=== PATIENT | male | born 2000 | race Caucasian/White ===

== ENCOUNTER 2024-06-21 10:46 | Day surgery (SDC) | payer OTHER ==
[~2024-06-21] VITALS: Ht 177.8 cm; Wt 70.2 kg
[~2024-06-21 10:46] MED LIST: ALBU90OI INH; ALBU90OI6 INH; ALBUIS IH; AMOX50SU PO; AZIT100SU PO; AZIT200SU PO; Bupivacaine 0.5% HCl 5 MG/ML 30MLVIAL ONE; CLIN150 PO; DOXY100 PO; FentaNYL Citrate 50 MCG/ML 2 ML Injection ONE; IBUP100S; Lidocaine 1%-Epineph 1:100000 20 ML MDV ONE; RXANTBENOT AU; RXCODACESY PO; propofoL 20 ML IV ONE
[2024-06-21] MEDS ORDERED: Tranexamic Acid 100 ML IV ONE (10:53)
[2024-06-21] MEDS ORDERED: CeFAZolin Sodium 2,000 MG VIAL ONE (11:01)
[2024-06-21] MEDS ORDERED: NS 50 ML IV ONE (11:01)
[2024-06-21] MEDS ORDERED: Lactated Ringer's 1,000 ML IV ONE (11:02)
--- NOTE | 2024-06-21 12:31 | NUR ---
06/21/24 1231 Dennys Campa, BLOCK TIMEOUT 1223 BLOCK STARTED 1227 BLOCK FINISHED 1226
[2024-06-21] MEDS ORDERED: Ondansetron HCl 2 MG / ML 2ML Vial ONE (12:42)
[2024-06-21] MEDS ORDERED: Dexamethasone Sod Phos 10 MG/ML 1ML VIAL ONE (12:42)
[2024-06-21] MEDS ORDERED: HYDROmorphone HCl/Pf 1MG SYR ONE (12:58)
[2024-06-21] MEDS ORDERED: FentaNYL Citrate 50 MCG/ML 2 ML Injection ONE ×2 (14:44→15:38)
[2024-06-21] MEDS ORDERED: Ketorolac Tromethamine 30mg Vial ONE (14:50)
[2024-06-21] MEDS ORDERED: Ropivacaine 0.5% HCL/PF 5 MG/ML 30ML Vial ONE (14:51)
[2024-06-21] MEDS ORDERED: OxyCODONE HCL 5 MG TAB ONE (16:19)
--- NOTE | 2024-06-21 17:20 | NUR ---
06/21/24 1720 Judy Emery PT STATED WILL WRAPPED "FELT TOO TIGHT", THIS RN, JAN, PARMINDER AND NUNU GONZALEZ LOOSENED WILL WRAP AND EDUCATED PT HOW TO WILL WRAP AND IMMOBILIZER POSITIONING. DISCHARGE INSTRUCTIONS GIVEN TO MOM AND PT. PT STATED PAIN DECREASED 5/10 AND TOLERABLE. RX GIVEN TO MOM. VSS ON RA.
[2024-06-21 17:27] VITALS: BP 136/80
== END 2024-06-21 17:41 | disposition home or self-care (01) ==
LOC: ORSCSDS 10:46
PROVIDERS: Orthopaedic Surgery Sports Medicine
PROC: 0SQD4ZZ Repair Left Knee Joint, Percutaneous Endoscopic Approach (ICD-10-PCS; principal; 2024-06-21 12:45)
DX: S83.212A Bucket-handle tear of medial meniscus, current injury, left knee, initial encounter (principal); F17.210 Nicotine dependence, cigarettes, uncomplicated
CPT/HCPCS: A9270; C1713; J0690; J1100; J1171; J1885; J2405; J2704; J2795; J3010

== ENCOUNTER 2024-09-14 10:57 | Day surgery (SDC) | payer OTHER ==
[~2024-09-14] VITALS: Ht 177.8 cm; Wt 65.5 kg
[2024-09-14] VITALS (9 sets, daily range): BP systolic 115–140; BP diastolic 73–89
[~2024-09-14 10:57] MED LIST changes: -Bupivacaine 0.5% HCl 5 MG/ML 30MLVIAL ONE; +CeFAZolin Sodium 2,000 MG VIAL ONE; +CeFAZolin Sodium 2,000 MG in NS 100 ML IV SCH; -FentaNYL Citrate 50 MCG/ML 2 ML Injection ONE; +Lactated Ringer's 1,000 ML IV SCH; -Lidocaine 1%-Epineph 1:100000 20 ML MDV ONE; +Tranexamic Acid 1,000 MG in NS 100 ML IV SCH; -propofoL 20 ML IV ONE
--- NOTE | 2024-09-14 11:22 | NUR ---
History, Chart, Medications and Allergies reviewed before start of procedure. Lungs clear T/O to Auscultation. Patient confirms NPO status and agrees with scheduled surgery. Patient reports completing Chlorhexadine shower X2 prior to admission to hospital. Pre-Op teaching done. Pt verbalizes understanding.
[2024-09-14] MEDS ORDERED: FentaNYL Citrate 50 MCG/ML 2 ML Injection ONE (11:29)
[2024-09-14] MEDS ORDERED: Midazolam HCl 1MG / ML 2ML Vial ONE (11:29)
[2024-09-14] MEDS ORDERED: propofoL 20 ML IV ONE (11:31)
[2024-09-14] MEDS ORDERED: Bupivacaine 0.5% W/EPI 1:200000 SDV 30 ML Vial ONE (11:43)
[2024-09-14] MEDS ORDERED: Ketorolac Tromethamine 30mg Vial ONE (11:47)
[2024-09-14] MEDS ORDERED: HYDROmorphone HCl/Pf 1MG SYR ONE (12:02)
[2024-09-14] MEDS ORDERED: OxyCODONE HCL 5 MG TAB PO PRN (12:40)
--- NOTE | 2024-09-14 13:41 | NUR ---
Patient up to Ambulate independently. Gait steady. Discharge instructions reviewed with patient. Patient verbalizes understanding. Copy given to patient to take home. Discharged via wheelchair to private car for ride home.
== END 2024-09-14 13:40 | disposition home or self-care (01) ==
LOC: ORSCMMR 10:57
PROVIDERS: Orthopaedic Surgery Sports Medicine
PROC: 0SBC4ZZ Excision of Right Knee Joint, Percutaneous Endoscopic Approach (ICD-10-PCS; principal; 2024-09-14 12:30)
DX: S83.281A Other tear of lateral meniscus, current injury, right knee, initial encounter (principal); M67.51 Plica syndrome, right knee
CPT/HCPCS: J0690; J1171; J1885; J2250; J2704; J3010; J7120